=== PATIENT | male | born 1950 | race Caucasian/White ===

== ENCOUNTER 2018-07-25 20:35 | Inpatient (IN) | payer BC, MEDICARE ==
[~2018-07-25] VITALS: Ht 182.9 cm; Wt 98.0 kg
[2018-07-25 21:16] LABS: BASO # 0.1 (0.0-0.2); BASO % 0.5 % (0.0-2.0); EOS # 0.2 (0.0-0.7); EOS % 1.3 % (0-4.0); GRAN # 11.8 (1.4-6.5); GRAN % 76.8 % (42.2-75.2); HEMATOCRIT 38.6 % (42.0-52.0); HEMOGLOBIN 12.7 g/dl (13.5-18.0); LYMPH # 2.4 (1.2-3.4); LYMPH % 15.5 % (20.0-51.0); MEAN CELL VOLUME 91 fl (80.0-100.0); MEAN CORPUSCULAR HEMOGLOBIN 30 pg (27.0-31.0); MEAN CORPUSCULAR HGB CONC 33 g/dl (33.0-37.0); MEAN PLATELET VOLUME 9.2 fl (7.4-10.4); MONO # 0.8 (0.1-0.6); MONO % 5.3 % (1.7-9.3); PLATELET COUNT 288 K/mm3 (130-400); RED BLOOD COUNT 4.26 M/mm3 (4.20-5.60); REDCELL DISTRIBUTION WIDTH-CV 12.9 % (11.5-14.5)
[2018-07-25 21:22] LABS: PROTHROMBIN TIME 11.5 SECONDS (9.7-12.8)
[2018-07-25 21:23] LABS: ALBUMIN 4.1 gm/dL (3.5-5.0); BILIRUBIN,TOTAL 0.2 mg/dL (0.0-1.0); CALCIUM 8.8 mg/dL (8.4-10.2); CREATININE, serum 0.87 (0.66-1.25); POTASSIUM 3.3 mmol/L (3.4-5.0); TOTAL PROTEIN 7.6 gm/dL (6.4-8.2)
[2018-07-25 21:24] LABS: PARTIAL THROMBOPLASTIN TIME 26.4 SECONDS (26.0-37.0)
[2018-07-26] VITALS (15 sets, daily range): BP systolic 112–150; BP diastolic 60–75; PULSE 60–78; TEMP 98.1–99
[2018-07-26] MEDS ORDERED: ALEVE 220MG220 MG PO (09:44)
--- NOTE | 2018-07-26 09:47 | NUR ---
SW met with the patient to discuss discharge plan. The patient lives in [place] with his , Claudine. He reports independence with ADLs and does not use any DME. The patient's PCP is Dr. Jorge Taylor and he receives his medications at the [facility]. He reports no difficulties obtaining his meds. The patient does not have advanced directives, but he was interested in obtaining a form for DPOA-HC. EV provided. The patient is to have surgery today, 07/26. SW to continue to follow to ensure a safe discharge.
[2018-07-26 09:48] LABS: PROTHROMBIN TIME 12.1 SECONDS (9.7-12.8)
--- NOTE | 2018-07-26 10:40 | NUR ---
Patient is going down for surgery at this time. Consent signed and on the chart. Pre-ops given as ordered.
--- NOTE | 2018-07-26 17:00 | NUR ---
Patient with right hip hemiarthroplasty today. Incision to right hip with aquacel clean, dry and intact. Pulses palpable to LLE, neuros intact, no c/o numbness or tingling. No c/o at this time.
--- NOTE | 2018-07-26 23:22 | NUR ---
Patient noted to have flat affect. Patient denies pain. States he is able to feel sensation and is able to wiggle his toes. Denies any further needs. Will continue to monitor patient.
[2018-07-27] VITALS (7 sets, daily range): BP systolic 112–128; BP diastolic 58–68; PULSE 70–79; TEMP 97.6–99.3
[2018-07-27 05:06] LABS: BASO % 0.2 % (0.0-2.0); EOS % 0.1 % (0-4.0); GRAN # 7.6 (1.4-6.5); GRAN % 72.2 % (42.2-75.2); LYMPH # 1.6 (1.2-3.4); LYMPH % 15.3 % (20.0-51.0); MEAN CELL VOLUME 90 fl (80.0-100.0); MEAN CORPUSCULAR HEMOGLOBIN 30 pg (27.0-31.0); MEAN CORPUSCULAR HGB CONC 34 g/dl (33.0-37.0); MEAN PLATELET VOLUME 9.6 fl (7.4-10.4); MONO # 1.2 (0.1-0.6); MONO % 11.7 % (1.7-9.3); PLATELET COUNT 277 K/mm3 (130-400); RED BLOOD COUNT 3.63 M/mm3 (4.20-5.60)
[2018-07-27 05:08] LABS: HEMATOCRIT 32.6 % (42.0-52.0)
[2018-07-27 05:11] LABS: ALBUMIN 3.2 gm/dL (3.5-5.0); BILIRUBIN,TOTAL 0.3 mg/dL (0.0-1.0); CALCIUM 8.3 mg/dL (8.4-10.2); CREATININE, serum 0.98 (0.66-1.25); POTASSIUM 4.1 mmol/L (3.4-5.0); TOTAL PROTEIN 6.3 gm/dL (6.4-8.2)
--- NOTE | 2018-07-27 05:45 | NUR ---
Patient on alcohol detox protocol. Highest score this shift was a 1. Patient has rested well throughout the night. Continues to deny pain. Utilizes urinal for voiding. Will continue to monitor patient.
--- NOTE | 2018-07-27 07:15 | NUR ---
Report given to HUMBERTO Main.
--- NOTE | 2018-07-27 08:00 | NUR ---
PATIENT IS A&O. VSS. DENIES PAIN AT REST. PATIENT REQUESTING SOMETHING FOR PAIN BEFORE AM THERAPY. GAVE PRN ROXICODONE, ONE TAB WITH AM MEDS AND BREAKFAST. NO C/O N/V. RIGHT HIP DRESSING IS CD&I WITH AQUACEL. TEDS & SCD'S TO BLE. POSITIVE PEDAL PULSES. PATIENT VOIDING SUFFICENT AMOUNTS. HEAD TO TOE WNL. NO OTHER NEEDS.
--- NOTE | 2018-07-27 13:04 | NUR ---
SW met with the patient to review discharge plan and to discuss physical therapies recommendation of considering post-acute rehab. The patient reports that he is worried about his being at home alone, but that his has been talking to their family and friends to receive support from them, while he is in rehab. The patient reports that he would be interested in [facility] though. EV consulted IPR Director, Linda. Linda reports that they can accept the patient and that she received authorization from the patient's insurance. SW to continue to follow.
--- NOTE | 2018-07-27 13:42 | NUR ---
The patient is to tranfer to [facility] today, 07/27. No additional needs at this time.
--- NOTE | 2018-07-27 13:50 | NUR ---
PATIENT TRANSFERING TO [facility]. SEE ORDERS. RN DC'D IV. REPORT GIVEN TO HUMBERTO HYDE. PATIENT DISCHARGED.
[2018-07-27] MEDS ORDERED: NORCO 325 MG-51 TAB PO (13:56)
[2018-07-27] MEDS ORDERED: ASPIRIN 32325 MG/TAB PO (13:56)
[2018-07-27] MEDS ORDERED: ZOFRAN 4MG T4 MG/TAB PO (14:59)
[2018-07-27] MEDS ORDERED: FOLIC ACID 11 MG/TA1 PO (15:00)
[2018-07-27] MEDS ORDERED: SENNA-S 50 MG-81 TAB PO (15:01)
[2018-07-27] MEDS ORDERED: OSCAL 500 TAB500 MG PO (15:01)
[2018-07-27] MEDS ORDERED: MULTI VITAMINS1 TAB PO (15:02)
[2018-07-27] MEDS ORDERED: VITAMIN C500 MG PO (15:03)
[2018-07-27] MEDS ORDERED: THIAMINE 1100 MG/TAB PO (15:03)
== END 2018-07-27 13:35 | DRG 470 ==
LOC: COL.ER 20:35 → SURG 07-26 07:04
PROVIDERS: Emergency Medicine
PROC: 0SRR0JZ Replacement of Right Hip Joint, Femoral Surface with Synthetic Substitute, Open Approach (ICD-10-PCS; principal; 2018-07-27)
DX: S72.91XA Unspecified fracture of right femur, initial encounter for closed fracture (principal); W11.XXXA Fall on and from ladder, initial encounter; Y93.H9 Activity, other involving exterior property and land maintenance, building and construction; Y92.007 Garden or yard of unspecified non-institutional (private) residence as the place of occurrence of the external cause; E87.6 Hypokalemia; F10.20 Alcohol dependence, uncomplicated; Y90.4 Blood alcohol level of 80-99 mg/100 ml
CPT/HCPCS: 99222-AI; 99231-AI; A9284; C1776; J0690; J1100; J1170; J2250; J2405; J2704; J2795; J3010; J7030; J7120; Q9967

== ENCOUNTER 2018-07-27 13:34 | Inpatient (IN) | payer BC, MEDICARE ==
[~2018-07-27] VITALS: Ht 180.3 cm; Wt 98.9 kg
[~2018-07-27 13:34] MED LIST: ALEVE 220MG220 MG PO
--- NOTE | 2018-07-27 13:40 | NUR ---
Report from HUMBERTO Merrill. Jason, PT wanting to see pt before 1400.
[2018-07-27] MEDS ORDERED: ASPIRIN 32325 MG/TAB PO (13:56)
[2018-07-27] MEDS ORDERED: NORCO 325 MG-51 TAB PO (13:56)
[2018-07-27] MEDS ORDERED: ZOFRAN 4MG T4 MG/TAB PO (14:59)
[2018-07-27] MEDS ORDERED: FOLIC ACID 11 MG/TA1 PO (15:00)
[2018-07-27] MEDS ORDERED: OSCAL 500 TAB500 MG PO (15:01)
[2018-07-27] MEDS ORDERED: SENNA-S 50 MG-81 TAB PO (15:01)
[2018-07-27] MEDS ORDERED: MULTI VITAMINS1 TAB PO (15:02)
[2018-07-27] MEDS ORDERED: VITAMIN C500 MG PO (15:03)
[2018-07-27] MEDS ORDERED: THIAMINE 1100 MG/TAB PO (15:03)
[2018-07-27 15:33] VITALS: BP 149/69; PULSE 73; TEMP 97.8
--- NOTE | 2018-07-27 19:49 | NUR ---
Pt arrived to IPR unit with family. Pt A&O, pleasant, took pills one at a time with water. [place] for pain to right hip. Report to HUMBERTO Grimm- including that 5 page needed done.
--- NOTE | 2018-07-27 21:10 | NUR ---
Patient dressed for HS and returned with RELATIONSHIP MGR from the bathroom. Alert and oriented x 4. Pleasant. HS meds all reviewed and given. States he had a large soft formed bm today and declined bowel med. Pain med reviewed and given prior to sleep. Has napoleon hose off and SCD's reviewed and applied. RLE elevated on pillow and ice pack on.
--- NOTE | 2018-07-28 03:00 | NUR ---
Patient has been resting quietly in bed. Respirations with ease.
--- NOTE | 2018-07-28 03:00 | NUR ---
Patient has been resting quietly in bed with eyes closed on hourly rounds.
[2018-07-28 04:03] VITALS: BP 133/62; PULSE 75; TEMP 98.3
--- NOTE | 2018-07-28 04:15 | NUR ---
Patient awake and denies pain. SCD's adjusted as not to make bleeping sound.
--- NOTE | 2018-07-28 08:16 | NUR ---
PT SITTING UP ON SIDE OF THE BED. ASKED FOR ASSIST TO BR. PT WAS BLAE TO LIFT BOTH LEGS OFF THE BED AFTER THE SCD'S WERE REMOVED. PT STOOD UNASSISTED TO WALKER AFTER GAIT BELT APPLIED AND AMBULATED WITH STEADY GAIT TO BR. PT WAS PREMEDICATED WITH TYLENOL 650 MG FOR THERAPY.
--- NOTE | 2018-07-28 10:20 | NUR ---
Patient was sleeping.
--- NOTE | 2018-07-28 11:22 | NUR ---
PT IS MADE MOD I IN HIS ROOM PER OC PT. PT IS DOING WELL AMBULATING AND GAIT IS STEADY.
--- NOTE | 2018-07-28 11:28 | NUR ---
Patient was not in his room.
--- NOTE | 2018-07-28 13:32 | NUR ---
FAMILY STILL HERE. PT STATES NO NEEDS
--- NOTE | 2018-07-28 14:48 | NUR ---
FAMILY HAS GONE. PT STATES HE HAD BM WHICH WAS NORMAL FOR HIM AAFTER THERAPY
[2018-07-28 15:12] VITALS: BP 122/61; PULSE 80; TEMP 99.2
--- NOTE | 2018-07-28 17:24 | NUR ---
PT STATES HE HAD ANOTHER SF STOOL THIS AFTER NOON
--- NOTE | 2018-07-28 20:45 | NUR ---
Patient dressed in hospital gown and ambulating in room. Reports minimal pain at this time and takes norco for HS. Alert and oriented x 4. Ice pack given and to right hip. Declines snack.
--- NOTE | 2018-07-29 01:10 | NUR ---
Patient rests quietly in bed. Respirations with ease.
[2018-07-29 06:15] VITALS: BP 142/63; PULSE 75; TEMP 97.9
--- NOTE | 2018-07-29 06:15 | NUR ---
PATIENT AWAKE AND UP AT SINK WITH WALKER. GOOD SAFETY AWARENESS NOTED. DENIES NEED FOR PAIN MED. STATES SLEPT OK LAST NIGHT.
--- NOTE | 2018-07-29 09:04 | NUR ---
Report from HUMBERTO Grimm. Pt attended PT this morning. Glasses, gripper socks in place, tylenol for pain, provided ice pack for R hip. A&O, pleasantly cooperative. Took pills with thin liquids.
--- NOTE | 2018-07-29 09:36 | NUR ---
Pt amb edwards >150' with BRITTNI goddard
--- NOTE | 2018-07-29 12:42 | NUR ---
ICE TO HIP
--- NOTE | 2018-07-29 14:40 | NUR ---
Plan is to return home with Claudine in [place]. Patient reports that he will need a walker at home. Patient reports PCP as Dr. Loco and RX obtained from [facility] on [place]. Patinet reports no use of other DME. Patient reports follow-up addi with Dr. Taylor on August 09. Patient shares that will transport. Patient shares independent prior to this incident. is carlos/default for DPOA, nothing in writing. SW filled out DME and PA order form, patient needs to [facility] [employer] form and need to sign form for walker. Form on Desk on CM-office. Nothing follows.
--- NOTE | 2018-07-29 17:54 | NUR ---
Refilled ice water, ice pack to right hip, tylenol for pain.
[2018-07-29 18:00] VITALS: BP 152/67; PULSE 73; TEMP 98.2
--- NOTE | 2018-07-29 23:02 | NUR ---
Report received from HUMBERTO Millan about [id number]. Patient ambulates independently in room with walker. Denies pain. Took evening medications with no difficulty. Denied any further needs. Will continue to monitor.
[2018-07-30 04:26] VITALS: BP 153/64; PULSE 79; TEMP 98.6
--- NOTE | 2018-07-30 06:44 | NUR ---
Report given to HUMBERTO Millan.
--- NOTE | 2018-07-30 10:53 | NUR ---
Report from HUMBERTO Dena. Pt soham Mod I in rm w/ walker, adv to mod I in edwards around surgical desk and IPR unit. TOÑO Hull reports possibly discharge home Monday, wait for final determination of DME needed Monday. Tylenol for pain. Pt dressed, gripper socks and glasses in place. Pt asked for assist to hand picker dropped food off floor. Denied any questions.
--- NOTE | 2018-07-30 12:46 | NUR ---
Provided ice pack for r hip, ice water. Requests Via [facility] for outpatient therapies. Closed today. Will pass in report.
--- NOTE | 2018-07-30 13:49 | NUR ---
Pt edward edwards with walker, had visitors.
[2018-07-30 15:47] VITALS: BP 143/66; PULSE 74; TEMP 98.9
--- NOTE | 2018-07-30 15:53 | NUR ---
ICE TO HIP
--- NOTE | 2018-07-30 21:15 | NUR ---
Patient ambulating around in room with walker. Alert and oriented x 4. Minimal pain right hip. HS meds along with norco reviewed and given. New icepack given.
--- NOTE | 2018-07-31 02:42 | NUR ---
Patient has been resting quietly in bed. Respirations with ease.
[2018-07-31 06:15] VITALS: BP 134/72; PULSE 77; TEMP 97.5
--- NOTE | 2018-07-31 06:16 | NUR ---
Patient awakened for vitals. Denies need for pain med.
--- NOTE | 2018-07-31 09:57 | NUR ---
Patient has been doing well this morning. He was up on his own and got dressed before shift change. He has been working with therapy and has walked in the hallways once on his own and once with therapy. Minimal complaints of pain. No complaints of nausea. No other changes at this time. Call light within reach.
--- NOTE | 2018-07-31 11:16 | NUR ---
First visit from the carpenters. No needs right now.
--- NOTE | 2018-07-31 13:45 | NUR ---
SW met with the patient to introduce oneself and to review plan for discharge home tomorrow, 08/01. The patient reports that he is doing much better and ready to get back home. He states that he does have a cane to use at home and that he will have transportation back home. The patient had no other questions or concerns at this time. SW to continue to follow.
[2018-07-31 16:27] VITALS: BP 132/68; PULSE 71; TEMP 98.8
--- NOTE | 2018-07-31 20:45 | NUR ---
HS med along with norco for pain reviewed and given. Patient ambutating around in room. States OT gave permission for him to shower independently and towels noted on bathroom floor. New ice pack given. Denies further needs.
--- NOTE | 2018-08-01 01:25 | NUR ---
Patient has been resting quietly in bed. Respirations with ease.
--- NOTE | 2018-08-01 02:41 | NUR ---
Patient resting in bed with eyes closed. Respirations with ease.
--- NOTE | 2018-08-01 05:00 | NUR ---
PATIENT RESTING QUIETLY IN BED. AWAKENED FOR VITALS. DENIES NEEDS.
[2018-08-01 05:19] VITALS: BP 149/64; PULSE 73; TEMP 98.2
[2018-08-01] MEDS ORDERED: TYLENOL 325MG325 MG PO (08:42)
[2018-08-01] MEDS ORDERED: NORCO 325 MG-51 TAB PO (08:43)
--- NOTE | 2018-08-01 09:24 | NUR ---
EV followed up with the patient to inquire a preference for outpatient PT. The patient reports that he would prefer the [facility] on [facility]. EV contacted Kelsi at the [facility] and scheduled an appointment for Monday, 08/07, at 1515. EV informed the patient's nurse of the appointment. The patient is to discharge back home with his today, 08/01, and will receive outpatient PT at the [facility] on [facility]. EV presented and explained the IM form to the patient. The patient verbalized understanding, signed, and he was provided a copy. No additional needs at this time.
--- NOTE | 2018-08-01 10:57 | NUR ---
Patient sitting in recliner at this time and is independent in his room. Patient reporting 1-2/10 pain to right upper leg. Denies any questions at this time.
--- NOTE | 2018-08-01 11:24 | NUR ---
Patient reported walking a long way yesterday with therapy and when getting a shower he noticed bruising to inner right thigh and more swelling. This nurse called Ortho and is waiting on a return call at this time.
--- NOTE | 2018-08-01 13:59 | NUR ---
Patient received instruction on discharge and was given Patient Health Summary as well as reviewed meds he would be going home on. Patient received printed script for [place] that he will be taking to his pharmacy. Patient was instructed to wear his napoleon hose all day and night per order of Ortho until he was post op 4 weeks. He voiced understanding and was given napoleon hose to wear. Patient was walked out with staff Dannielle/RN to his car and was seatbelted in for a ride home with a friend. Patient denied any questions.
== END 2018-08-01 13:30 | disposition home or self-care (01) | DRG 561 ==
PROVIDERS: ADMIT Internal Medicine
DX: S72.001D Fracture of unspecified part of neck of right femur, subsequent encounter for closed fracture with routine healing (principal); F10.20 Alcohol dependence, uncomplicated; W11.XXXD Fall on and from ladder, subsequent encounter; Z79.82 Long term (current) use of aspirin
CPT/HCPCS: 99232-AI; 99239

== ENCOUNTER 2018-08-21 15:00 | Outpatient (RCR) | payer BC ==
[~2018-08-21 15:00] MED LIST changes: +ASPIRIN 32325 MG/TAB PO; +FOLIC ACID 11 MG/TA1 PO; +MULTI VITAMINS1 TAB PO; +NORCO 325 MG-51 TAB PO; +OSCAL 500 TAB500 MG PO; +SENNA-S 50 MG-81 TAB PO; +THIAMINE 1100 MG/TAB PO; +TYLENOL 325MG325 MG PO; +VITAMIN C500 MG PO; +ZOFRAN 4MG T4 MG/TAB PO
[2018-09-21] MEDS ORDERED: VITAMIN B1 50 MG PO (08:49)
== END 2018-11-05 | disposition home or self-care (01) ==
LOC: MKS.ESL.PT
DX: S72.001D Fracture of unspecified part of neck of right femur, subsequent encounter for closed fracture with routine healing (principal); Z98.890 Other specified postprocedural states

== ENCOUNTER 2018-09-21 08:34 | Day surgery (SDC) | payer BC ==
[~2018-09-21] VITALS: Ht 182.9 cm; Wt 93.2 kg
[2018-09-21] MEDS ORDERED: VITAMIN B1 50 MG PO (08:49)
[2018-09-21 09:13] VITALS: BP 142/78; PULSE 72; TEMP 97.8
[2018-09-21 10:15] VITALS: BP 136/72; PULSE 66; TEMP 97.6
--- NOTE | 2018-09-21 10:15 | NUR ---
Patient brought back to bay 4, alert and oriented. Ambulated to chair without difficulty. States he would like water and a apple sauce. Denies any pain or nausea. Vital signs stable. Will continue to monitor.
[2018-09-21 10:30] VITALS: BP 132/71; PULSE 64
--- NOTE | 2018-09-21 10:30 | NUR ---
Patient tolerating food and drink will. Vital signs stable. Will continue to monitor.
[2018-09-21 10:45] VITALS: BP 130/73; PULSE 59
--- NOTE | 2018-09-21 10:45 | NUR ---
Patient states hes feeling ready to go home. Vital signs stable. Awaiting physician to speak with patient. Will continue to monitor.
--- NOTE | 2018-09-21 11:10 | NUR ---
Education and discharge instructions reviewed with patient. Verbalized understanding. Ambulated to [facility] without difficulty. To be driven home by friend Fidel.
[2018-09-21 13:20] VITALS: BP 136/75; PULSE 66
== END 2018-09-21 11:10 | disposition home or self-care (01) ==
LOC: SDCO 08:34
DX: Z12.11 Encounter for screening for malignant neoplasm of colon (principal); K63.5 Polyp of colon; K57.30 Diverticulosis of large intestine without perforation or abscess without bleeding; Z86.010 Personal history of colon polyps
CPT/HCPCS: J2250; J2405; J3010; J7030